=== PATIENT | male | born 1960 | race African-American/Black ===

== ENCOUNTER 2018-12-14 17:59 | Inpatient (IN) ==
[2018-12-14] MEDS ORDERED: ALBUTEROL/IPRATROPIUM 3 ML NEB RESP TX STA (18:31)
[2018-12-14] MEDS ORDERED: ONDANSETRON 4 MG/2 ML VIAL IV STA (18:31)
[2018-12-14] MEDS ORDERED: FUROSEMIDE 100 MG/10 ML VIAL IV STA (18:31)
[2018-12-14] MEDS ORDERED: DILTIAZEM 50 MG/10 ML VIAL IV STA (18:31)
[2018-12-14] MEDS ORDERED: dilTIAZem Drip 125 MG/125 ML PREMIX IV SCH (19:00)
[2018-12-14 19:04] LABS: Basophils % 0.5 % (0.0-0.8); Eosinophils # 0.1 10*3/uL (0.0-0.87); Eosinophils % 0.7 % (0.00-10.9); Hematocrit 26.8 VOL% (42.0-52.0); Hemoglobin 9.1 GM/DL (14.0-18.0); Immature Granulocytes % 0.5 %; Immature Granulocytes Absolute 0.04 #; Lymphocytes % 22.6 % (21.2-54.2); Mean Corpuscular Volume 113.1 FL (87-102); Mean Platelet Volume 9.7 FL (9.6-12.0); Monocytes % 8.9 % (1.7-12.7); Neutrophils % 66.8 % (38.7-73.9); Platelet Count 268 T/CUMM (130-400); Red Blood Count 2.37 MC/CUMM (3.8-5.5); Red Cell Distribution Width 14.3 % (9.3-17.3); White Blood Count 8.7 T/CUMM (4-12)
[2018-12-14 19:23] LABS: Albumin 2.7 G/DL (3.4-5.0); Bilirubin,Total 0.5 MG/DL (0.2-1.0); Calcium 8.6 MG/DL (8.5-10.1); Osmolality,Calculated 286.1 MOS/KG (273-304)
[2018-12-14 19:47] LABS: INR 1.1; PT Patient Result 11.6 SECS (9.6-12.2)
[2018-12-14] MEDS ORDERED: MAGNESIUM SULF RIDER 2 GM in PREMIX 1 EACH IV STA (20:08)
[2018-12-14] MEDS ORDERED: POTASSIUM CHLORIDE 20 MEQ TABLET PO STA (20:08)
[2018-12-14] MEDS ORDERED: ONDANSETRON 4 MG/2 ML VIAL IV PRN (20:20)
[2018-12-14] MEDS ORDERED: LORazepam 2 MG/1 ML VIAL IV PRN (20:25)
[2018-12-14] MEDS ORDERED: MAGNESIUM SULF RIDER 2 GM in PREMIX 1 EACH IV ONE (20:29)
[2018-12-14 20:31] LABS: Apearance,Urine CLEAR (Clear); Bilirubin,Urine Negative (Negative); Blood, Urine Negative (Negative); Glucose,Urine (UA) Negative (Negative); Hyaline Casts,Urine 1 /LPF (0-3); Ketones,Urine Negative (Negative); Mucus,Urine Occasional /LPF (Occasional); Nitrite,Urine Negative (Negative); Protein,Urine 30 MG/DL; RBC,Urine 2 /HPF (0-4); Urine Color Yellow (Yellow); Urine Urobilinogen < 2.0 EU/DL (0.2-1.0); WBC,Urine 6 /HPF (0-6)
[2018-12-14] MEDS ORDERED: METOPROLOL TARTRATE 50 MG TABLET PO SCH (21:00)
[2018-12-14] MEDS ORDERED: hydrALAZINE 25 MG TABLET PO SCH (21:00)
[2018-12-14 21:11] LABS: Troponin I 0.069 NG/ML (0.00-0.045)
[2018-12-15 04:03] LABS: Basophils % 0.4 % (0.0-0.8); Eosinophils # 0.1 10*3/uL (0.0-0.87); Eosinophils % 1.1 % (0.00-10.9); Hematocrit 24.9 VOL% (42.0-52.0); Hemoglobin 8.5 GM/DL (14.0-18.0); Immature Granulocytes % 0.5 %; Immature Granulocytes Absolute 0.04 #; Lymphocytes # 1.7 10*3/uL (1.4-4.0); Lymphocytes % 23.1 % (21.2-54.2); Mean Corpuscular HGB Conc 34.1 GM/DL (32-36); Mean Corpuscular Volume 113.2 FL (87-102); Mean Platelet Volume 9.9 FL (9.6-12.0); Monocytes % 11.6 % (1.7-12.7); NRBC # 0.02 10*3/uL; Neutrophils % 63.3 % (38.7-73.9); Platelet Count 259 T/CUMM (130-400); White Blood Count 7.4 T/CUMM (4-12)
[2018-12-15 04:26] LABS: Albumin 2.4 G/DL (3.4-5.0); Bilirubin,Total 0.6 MG/DL (0.2-1.0); Calcium 8.3 MG/DL (8.5-10.1); Osmolality,Calculated 286.1 MOS/KG (273-304); Risk Ratio 2.56; VLDL CHOLESTEROL 14.4 MG/DL
[2018-12-15 04:27] LABS: Troponin I 0.074 NG/ML (0.00-0.045)
[2018-12-15 04:31] LABS: Hypochromasia 1+; Ovalocytes 1+; Platelet Estimate Normal
[2018-12-15] MEDS ORDERED: FUROSEMIDE 40 MG/4 ML VIAL IV SCH ×2 (08:00→16:00)
[2018-12-15] MEDS ORDERED: metOLazone 5 MG TABLET PO SCH (09:00)
[2018-12-15] MEDS: FOLIC ACID 1 MG TABLET PO SCH (09:29)
[2018-12-15] MEDS: MULTIVITAMIN (INTRINSIC) CAPSULE PO SCH (09:29)
[2018-12-15] MEDS: ASPIRIN CHEW 81 MG TABLET PO SCH (09:29)
[2018-12-15] MEDS: ISOSORBIDE MONONITRATE 30 MG TABLET PO SCH (09:29)
[2018-12-15] MEDS: THIAMINE 100 MG TABLET PO SCH (09:29)
[2018-12-15 09:30] LABS: % Iron Saturation 33.7 % (18-50); Ferritin 288.8 ng/ml (26-388)
[2018-12-15] MEDS: hydrALAZINE 25 MG TABLET PO SCH ×2 (09:30→21:40)
[2018-12-15] MEDS: METOPROLOL TARTRATE 50 MG TABLET PO SCH ×2 (09:30→21:40)
[2018-12-15] MEDS: PANTOPRAZOLE 40 MG TABLET PO SCH (10:14)
[2018-12-15] MEDS: cefTRIAXone 1,000 MG in SYRINGE 1 EACH IV SCH (14:47)
[2018-12-15] MEDS: FUROSEMIDE 40 MG/4 ML VIAL IV SCH (16:26)
[2018-12-15 18:24] LABS: Protein/Creatinine Ratio,Urine 0.5 RATIO
[2018-12-15] MEDS: TAMSULOSIN 0.4 MG CAPSULE PO SCH (21:40)
[2018-12-16 04:50] LABS: Basophils % 0.3 % (0.0-0.8); Eosinophils # 0.1 10*3/uL (0.0-0.87); Eosinophils % 1.4 % (0.00-10.9); Hemoglobin 8.3 GM/DL (14.0-18.0); Immature Granulocytes % 0.3 %; Immature Granulocytes Absolute 0.02 #; Lymphocytes # 1.3 10*3/uL (1.4-4.0); Lymphocytes % 20.3 % (21.2-54.2); Mean Corpuscular HGB Conc 33.2 GM/DL (32-36); Mean Corpuscular Volume 115.7 FL (87-102); Mean Platelet Volume 10.6 FL (9.6-12.0); Monocytes % 11.1 % (1.7-12.7); Neutrophils % 66.6 % (38.7-73.9); Platelet Count 210 T/CUMM (130-400); Red Blood Count 2.16 MC/CUMM (3.8-5.5); Red Cell Distribution Width 14.5 % (9.3-17.3); White Blood Count 6.4 T/CUMM (4-12)
[2018-12-16 05:18] LABS: Calcium 8.5 MG/DL (8.5-10.1)
[2018-12-16 05:28] LABS: Anisocytosis 1+; Hypochromasia 1+; Platelet Estimate Adequate
[2018-12-16] MEDS: ACETAMINOPHEN 325 MG TABLET PO PRN ×2 (06:05→21:19)
[2018-12-16 09:07] LABS: % Iron Saturation 17.9 % (18-50); Ferritin 275.4 ng/ml (26-388)
[2018-12-16] MEDS: ISOSORBIDE MONONITRATE 30 MG TABLET PO SCH (09:46)
[2018-12-16] MEDS: ASPIRIN CHEW 81 MG TABLET PO SCH (09:46)
[2018-12-16] MEDS: FOLIC ACID 1 MG TABLET PO SCH (09:46)
[2018-12-16] MEDS: METOPROLOL TARTRATE 50 MG TABLET PO SCH ×2 (09:46→20:55)
[2018-12-16] MEDS: PANTOPRAZOLE 40 MG TABLET PO SCH (09:47)
[2018-12-16] MEDS: THIAMINE 100 MG TABLET PO SCH (09:47)
[2018-12-16] MEDS: MULTIVITAMIN (INTRINSIC) CAPSULE PO SCH (09:47)
[2018-12-16] MEDS: FUROSEMIDE 40 MG TABLET PO SCH (09:47)
[2018-12-16] MEDS: FUROSEMIDE 40 MG/4 ML VIAL IV SCH (09:48)
[2018-12-16] MEDS: hydrALAZINE 25 MG TABLET PO SCH ×2 (09:48→20:55)
[2018-12-16] MEDS ORDERED: SODIUM CHLORIDE 0.9% 1,000 ML IV PRN (14:02)
[2018-12-16 15:01] LABS: Ferritin 283.5 ng/ml (26-388)
[2018-12-16] MEDS: cefTRIAXone 1,000 MG in SYRINGE 1 EACH IV SCH (18:20)
[2018-12-16] MEDS: TAMSULOSIN 0.4 MG CAPSULE PO SCH (20:55)
[2018-12-17] MEDS ORDERED: SODIUM CHLORIDE 0.9% 1,000 ML IV PRN (00:39)
[2018-12-17 06:50] LABS: Basophils % 0.4 % (0.0-0.8); Eosinophils # 0.1 10*3/uL (0.0-0.87); Eosinophils % 1.7 % (0.00-10.9); Hemoglobin 9.3 GM/DL (14.0-18.0); Immature Granulocytes % 0.4 %; Immature Granulocytes Absolute 0.03 #; Lymphocytes # 1.8 10*3/uL (1.4-4.0); Lymphocytes % 26.3 % (21.2-54.2); Mean Corpuscular HGB Conc 33.2 GM/DL (32-36); Mean Corpuscular Volume 108.9 FL (87-102); Monocytes % 11.3 % (1.7-12.7); Neutrophils % 59.9 % (38.7-73.9); Platelet Count 248 T/CUMM (130-400); Red Blood Count 2.57 MC/CUMM (3.8-5.5); Red Cell Distribution Width 18.9 % (9.3-17.3)
[2018-12-17 07:11] LABS: Calcium 8.4 MG/DL (8.5-10.1); Osmolality,Calculated 283.5 MOS/KG (273-304)
[2018-12-17] MEDS: FOLIC ACID 1 MG TABLET PO SCH (08:42)
[2018-12-17] MEDS: PANTOPRAZOLE 40 MG TABLET PO SCH (08:42)
[2018-12-17] MEDS: ISOSORBIDE MONONITRATE 30 MG TABLET PO SCH (08:42)
[2018-12-17] MEDS: ASPIRIN CHEW 81 MG TABLET PO SCH (08:42)
[2018-12-17] MEDS: METOPROLOL TARTRATE 50 MG TABLET PO SCH (08:43)
[2018-12-17] MEDS: THIAMINE 100 MG TABLET PO SCH (08:43)
[2018-12-17] MEDS: hydrALAZINE 25 MG TABLET PO SCH (08:43)
[2018-12-17] MEDS: FUROSEMIDE 40 MG TABLET PO SCH (08:43)
[2018-12-17] MEDS: MULTIVITAMIN (INTRINSIC) CAPSULE PO SCH (08:46)
[2018-12-17 12:43] VITALS: BP 121/80
[2018-12-17] MEDS ORDERED: SODIUM BICARBONATE 650 MG TABLET PO SCH (13:00)
== END 2018-12-17 14:59 | disposition home or self-care (01) | DRG 291 ==
LOC: N.ED 17:59 → N.TELES 20:18
PROVIDERS: ADMIT Internal Medicine; ATTEND Internal Medicine

== ENCOUNTER 2020-03-18 22:55 | Inpatient (IN) ==
[2020-03-18] MEDS ORDERED: ONDANSETRON 4 MG/2 ML VIAL IV STA (23:34)
[2020-03-18] MEDS ORDERED: hydrALAZINE 20 MG/1 ML VIAL IV STA (23:34)
[2020-03-18] MEDS ORDERED: MORPHINE 4 MG/1 ML VIAL IV STA (23:35)
[2020-03-18] MEDS ORDERED: MORPHINE 4 MG/1 ML VIAL ONE (23:36)
[2020-03-18 23:37] LABS: Basophils % 0.3 % (0.0-0.8); Eosinophils % 0.3 % (0.00-10.9); Hematocrit 25.7 VOL% (42.0-52.0); Hemoglobin 8.9 GM/DL (14.0-18.0); Immature Granulocytes % 0.3 %; Immature Granulocytes Absolute 0.02 #; Lymphocytes # 1.2 10*3/uL (1.4-4.0); Lymphocytes % 20.8 % (21.2-54.2); Mean Corpuscular HGB Conc 34.6 GM/DL (32-36); Mean Corpuscular Volume 117.4 FL (87-102); Mean Platelet Volume 9.2 FL (9.6-12.0); Monocytes % 5.9 % (1.7-12.7); Neutrophils % 72.4 % (38.7-73.9); Platelet Count 229 T/CUMM (130-400); Red Blood Count 2.19 MC/CUMM (3.8-5.5); Red Cell Distribution Width 12.5 % (9.3-17.3); White Blood Count 5.8 T/CUMM (4-12)
[2020-03-18] MEDS: DEXTROSE 5% NACL 0.45% 1,000 ML IV SCH (23:45)
[2020-03-18] MEDS ORDERED: ONDANSETRON 4 MG/2 ML VIAL IV PRN (23:46)
[2020-03-18] MEDS ORDERED: MAGNESIUM HYDROXIDE SUSP 30 ML UDCUP PO PRN (23:46)
[2020-03-18 23:49] LABS: PT Patient Result 11.1 SECS (9.8-11.9); Partial Thromboplastin Time 31.3 SECS (23.9-33.8)
[2020-03-18 23:51] LABS: Calcium 8.6 MG/DL (8.5-10.1); Osmolality,Calculated 285.4 MOS/KG (273-304); Potassium 3.4 MMOL/L (3.5-5.1)
[2020-03-19] MEDS ORDERED: METOPROLOL TARTRATE 5 MG/5 ML VIAL IV STA (00:01)
[2020-03-19 00:21] LABS: Alanine Aminotransferase < 9 U/L (16-61); Albumin 2.7 G/DL (3.4-5.0); Alkaline Phosphatase 72 U/L (45-117); Aspartate Amino Transferase 17 U/L (0-37); Bilirubin,Total < 0.39 MG/DL (0.2-1.0); Blood Urea Nitrogen 32 MG/DL (7-18); Calcium 8.5 MG/DL (8.5-10.1); Carbon Dioxide 16 MMOL/L (21-32); Estimated Glom Filtration Rate 40 ML/MIN; Glucose 102 MG/DL (74-106); Osmolality,Calculated 285.4 MOS/KG (273-304); Potassium 3.4 MMOL/L (3.5-5.1); Sodium 140 MMOL/L (136-145); Total Protein 8.1 G/DL (6.4-8.3)
[2020-03-19] MEDS ORDERED: METOPROLOL TARTRATE 50 MG TABLET PO STA (01:19)
[2020-03-19] MEDS ORDERED: METOPROLOL TARTRATE 25 MG TABLET PO STA (01:27)
[2020-03-19] MEDS: hydrALAZINE 25 MG TABLET PO SCH ×3 (01:40→21:17)
[2020-03-19] MEDS ORDERED: hydrALAZINE 20 MG/1 ML VIAL IV STA (03:02)
[2020-03-19] MEDS: MORPHINE 4 MG/1 ML VIAL IV PRN ×3 (03:11→22:28)
[2020-03-19] MEDS ORDERED: SODIUM BICARBONATE 50 MEQ/50 ML VIAL IV ONE ×2 (05:06→08:30)
[2020-03-19] MEDS ORDERED: INFLUENZA VIRUS VACCINE 0.5 ML SYRINGE IM ONE (07:15)
[2020-03-19] MEDS ORDERED: MIDAZOLAM 2 MG/2 ML VIAL ONE (08:08)
[2020-03-19] MEDS ORDERED: fentaNYL 100 MCG/2 ML VIAL ONE (08:08)
[2020-03-19] MEDS ORDERED: DEXMEDETOMIDINE 200 MCG/2 ML VIAL ONE (08:08)
[2020-03-19] MEDS ORDERED: SODIUM CHLORIDE 0.9% 1,000 ML IV PRN ×2 (08:15→08:22)
[2020-03-19] MEDS ORDERED: BUPIVACAINE SPINAL 0.75% 2 ML AMP SPINAL ONE (08:29)
[2020-03-19] MEDS ORDERED: LIDOCAINE 1% 5 ML VIAL ONE (08:29)
[2020-03-19] MEDS ORDERED: DEXAMETHASONE 4 MG/1 ML VIAL ONE (08:29)
[2020-03-19] MEDS ORDERED: EPINEPHrine 1 MG/ML VIAL ONE (08:29)
[2020-03-19] MEDS ORDERED: BUPIVACAINE MPF 0.25% 30 ML VIAL ONE (08:29)
[2020-03-19] MEDS ORDERED: KETAMINE 500 MG/10 ML VIAL ONE (09:25)
[2020-03-19] MEDS ORDERED: MAGNESIUM HYDROXIDE SUSP 30 ML UDCUP PO PRN (10:49)
[2020-03-19] MEDS ORDERED: LACTULOSE 20 GM/30 ML UDCUP PO PRN (10:49)
[2020-03-19] MEDS ORDERED: PROMETHAZINE 25 MG/1 ML VIAL IM PRN (10:49)
[2020-03-19] MEDS ORDERED: BISACODYL 10 MG SUPP RECTAL PRN (10:49)
[2020-03-19] MEDS ORDERED: TEMAZEPAM 7.5 MG CAPSULE PO PRN (10:49)
[2020-03-19] MEDS ORDERED: MORPHINE 10 MG/1 ML VIAL IV PRN (11:26)
[2020-03-19] MEDS ORDERED: ONDANSETRON 4 MG/2 ML VIAL IV PRN (11:26)
[2020-03-19] MEDS ORDERED: TRANEXAMIC ACID 1,000 MG/10 ML VIAL ONE (11:36)
[2020-03-19] MEDS ORDERED: PHENYLEPHRINE 1 MG/10 ML SYRINGE IV ONE (11:36)
[2020-03-19] MEDS: POTASSIUM CHLORIDE 20 MEQ TABLET PO PRN ×3 (14:39→23:05)
[2020-03-19] MEDS ORDERED: THIAMINE 100 MG TABLET PO SCH (15:30)
[2020-03-19 16:15] LABS: ABG Base Excess -11.1 MMOL/L (-2.5-2.5); ABG HCO3 15.5 MMOL/L (20-26); ABG Oxygen Saturation 99.2 % (95-100); ABG PCO2 25.1 MM HG (35-48); ABG PH 7.343 (7.35-7.45); ABG TCO2 12.9 MMOL/L (23-27)
[2020-03-19] MEDS: ceFAZolin 2,000 MG in PREMIX 1 EACH IV SCH (16:17)
[2020-03-19] MEDS: DEXTROSE 5% NACL 0.45% 1,000 ML IV SCH (16:29)
[2020-03-19] MEDS ORDERED: SODIUM BICARB INJ 150 MEQ in STERILE WATER INJ 850 ML IV SCH (16:30)
[2020-03-19] MEDS: DOCUSATE SODIUM 100 MG CAPSULE PO SCH (21:18)
[2020-03-19] MEDS: hydrALAZINE 20 MG/1 ML VIAL IV PRN ×2 (22:29→23:41)
[2020-03-20] MEDS: ceFAZolin 2,000 MG in PREMIX 1 EACH IV SCH (00:31)
[2020-03-20] MEDS: MORPHINE 4 MG/1 ML VIAL IV PRN (02:54)
[2020-03-20] MEDS: hydrALAZINE 20 MG/1 ML VIAL IV PRN ×3 (02:54→16:50)
[2020-03-20] MEDS: diphenhydrAMINE CAP 25 MG CAPSULE PO PRN ×2 (04:52→20:44)
[2020-03-20] MEDS: FONDAPARINUX 2.5 MG/0.5 ML SYRINGE SUBCUT SCH (05:28)
[2020-03-20 06:07] LABS: Calcium 8.3 MG/DL (8.5-10.1); Osmolality,Calculated 279.8 MOS/KG (273-304); Potassium 4.7 MMOL/L (3.5-5.1)
[2020-03-20 06:11] LABS: Alanine Aminotransferase < 9 U/L (16-61); Albumin 2.3 G/DL (3.4-5.0); Alkaline Phosphatase 58 U/L (45-117); Aspartate Amino Transferase 35 U/L (0-37); Bilirubin,Total < 0.39 MG/DL (0.2-1.0); Blood Urea Nitrogen 32 MG/DL (7-18); Calcium 8.3 MG/DL (8.5-10.1); Carbon Dioxide 15 MMOL/L (21-32); Estimated Glom Filtration Rate 32 ML/MIN; Glucose 106 MG/DL (74-106); Osmolality,Calculated 279.8 MOS/KG (273-304); Potassium 4.7 MMOL/L (3.5-5.1); Sodium 137 MMOL/L (136-145); Total Protein 7.6 G/DL (6.4-8.3)
[2020-03-20 07:00] LABS: Folate 2.4 NG/ML (5.4-24.0)
[2020-03-20 07:20] LABS: Basophils % 0.1 % (0.0-0.8); Hematocrit 23.2 VOL% (42.0-52.0); Immature Granulocytes % 1.5 %; Immature Granulocytes Absolute 0.34 #; Lymphocytes # 1.2 10*3/uL (1.4-4.0); Lymphocytes % 5.4 % (21.2-54.2); Mean Corpuscular HGB Conc 34.5 GM/DL (32-36); Mean Corpuscular Volume 115.4 FL (87-102); Mean Platelet Volume 10.1 FL (9.6-12.0); Monocytes % 3.2 % (1.7-12.7); Neutrophils % 89.8 % (38.7-73.9); Platelet Count 206 T/CUMM (130-400); Red Blood Count 2.01 MC/CUMM (3.8-5.5); Red Cell Distribution Width 12.5 % (9.3-17.3); White Blood Count 22.8 T/CUMM (4-12)
[2020-03-20 07:42] LABS: Hypochromasia 1+; Lymphocytes 3 % (20-55); Microcytosis 1+; Platelet Estimate Adequate; Segmented Neutrophils 94 % (50-85); Total Cells Counted 100
[2020-03-20] MEDS ORDERED: LORazepam 2 MG/1 ML VIAL IM ONE (08:33)
[2020-03-20] MEDS: DOCUSATE SODIUM 100 MG CAPSULE PO SCH ×2 (09:24→22:15)
[2020-03-20] MEDS: hydrALAZINE 25 MG TABLET PO SCH ×2 (09:24→22:12)
[2020-03-20 09:39] LABS: ABG Base Excess -10.3 MMOL/L (-2.5-2.5); ABG HCO3 16.2 MMOL/L (20-26); ABG Oxygen Saturation 99.7 % (95-100); ABG PCO2 26.6 MM HG (35-48); ABG PH 7.343 (7.35-7.45); ABG TCO2 13.6 MMOL/L (23-27)
[2020-03-20] MEDS ORDERED: SODIUM BICARBONATE 50 MEQ/50 ML VIAL IV ONE (09:51)
[2020-03-20] MEDS ORDERED: FOLIC ACID INJ 1 MG in SYRINGE 1 EACH IV SCH (10:30)
[2020-03-20] MEDS: LORazepam 2 MG/1 ML VIAL IV PRN (10:44)
[2020-03-20] MEDS: THIAMINE 200 MG/2 ML VIAL IV SCH (10:45)
[2020-03-20] MEDS: FOLIC ACID INJ 1 MG in SYRINGE 1 EACH IV SCH (12:52)
[2020-03-20] MEDS: METOPROLOL TARTRATE 50 MG TABLET PO SCH ×2 (15:17→22:15)
[2020-03-20] MEDS: ASPIRIN CHEW 81 MG TABLET PO SCH (15:17)
[2020-03-20] MEDS: ISOSORBIDE MONONITRATE 30 MG TABLET PO SCH (15:17)
[2020-03-20] MEDS: FOLIC ACID 1 MG TABLET PO SCH (15:17)
[2020-03-20] MEDS: DEXTROSE 5% NACL 0.45% 1,000 ML IV SCH ×3 (16:23→20:05)
[2020-03-21] MEDS: DEXTROSE 5% NACL 0.45% 1,000 ML IV SCH ×4 (03:46→22:51)
[2020-03-21] MEDS: MORPHINE 4 MG/1 ML VIAL IV PRN (04:52)
[2020-03-21] MEDS: FONDAPARINUX 2.5 MG/0.5 ML SYRINGE SUBCUT SCH (07:11)
[2020-03-21] MEDS: ISOSORBIDE MONONITRATE 30 MG TABLET PO SCH (08:25)
[2020-03-21] MEDS: METOPROLOL TARTRATE 50 MG TABLET PO SCH ×2 (08:25→21:18)
[2020-03-21] MEDS: FOLIC ACID 1 MG TABLET PO SCH (08:25)
[2020-03-21] MEDS: hydrALAZINE 25 MG TABLET PO SCH (08:26)
[2020-03-21] MEDS: ASPIRIN CHEW 81 MG TABLET PO SCH (08:29)
[2020-03-21] MEDS: THIAMINE 200 MG/2 ML VIAL IV SCH (08:31)
[2020-03-21] MEDS: LORazepam 2 MG/1 ML VIAL IV PRN (08:33)
[2020-03-21 09:58] LABS: Basophils % 0.1 % (0.0-0.8); Eosinophils % 0.1 % (0.00-10.9); Hematocrit 21.1 VOL% (42.0-52.0); Hemoglobin 7.1 GM/DL (14.0-18.0); Immature Granulocytes % 0.7 %; Immature Granulocytes Absolute 0.05 #; Lymphocytes # 0.7 10*3/uL (1.4-4.0); Lymphocytes % 9.6 % (21.2-54.2); Mean Corpuscular HGB Conc 33.6 GM/DL (32-36); Mean Corpuscular Volume 115.9 FL (87-102); Mean Platelet Volume 9.5 FL (9.6-12.0); Monocytes % 1.8 % (1.7-12.7); Neutrophils % 87.7 % (38.7-73.9); Platelet Count 158 T/CUMM (130-400); Red Blood Count 1.82 MC/CUMM (3.8-5.5); Red Cell Distribution Width 12.5 % (9.3-17.3); White Blood Count 7.1 T/CUMM (4-12)
[2020-03-21] MEDS: ISOSORBIDE MONONITRATE 60 MG TABLET PO SCH (10:01)
[2020-03-21] MEDS: DOCUSATE SODIUM 100 MG CAPSULE PO SCH ×2 (10:01→21:17)
[2020-03-21 10:15] LABS: Hypochromasia 2+; Microcytosis 1+; Ovalocytes Slight; Platelet Estimate Adequate
[2020-03-21] MEDS: FOLIC ACID INJ 1 MG in SYRINGE 1 EACH IV SCH (13:10)
[2020-03-22] MEDS: FONDAPARINUX 2.5 MG/0.5 ML SYRINGE SUBCUT SCH (05:15)
[2020-03-22 05:27] LABS: Basophils % 0.2 % (0.0-0.8); Eosinophils # 0.1 10*3/uL (0.0-0.87); Eosinophils % 1.4 % (0.00-10.9); Hematocrit 20.9 VOL% (42.0-52.0); Immature Granulocytes % 0.9 %; Immature Granulocytes Absolute 0.09 #; Lymphocytes # 1.5 10*3/uL (1.4-4.0); Lymphocytes % 14.8 % (21.2-54.2); Mean Corpuscular HGB Conc 33.5 GM/DL (32-36); Mean Corpuscular Volume 114.8 FL (87-102); Mean Platelet Volume 9.7 FL (9.6-12.0); Monocytes % 4.7 % (1.7-12.7); Platelet Count 187 T/CUMM (130-400); Red Blood Count 1.82 MC/CUMM (3.8-5.5); Red Cell Distribution Width 12.4 % (9.3-17.3); White Blood Count 9.8 T/CUMM (4-12)
[2020-03-22 05:42] LABS: Calcium 8.2 MG/DL (8.5-10.1); Potassium 3.9 MMOL/L (3.5-5.1)
[2020-03-22 08:04] LABS: Anisocytosis 1+; Hypochromasia 2+; Microcytosis 1+
[2020-03-22 08:05] LABS: Platelet Estimate Adequate
[2020-03-22] MEDS ORDERED: SODIUM BICARB INJ 150 MEQ in STERILE WATER INJ 850 ML IV SCH (09:30)
[2020-03-22] MEDS: ASPIRIN CHEW 81 MG TABLET PO SCH (09:35)
[2020-03-22] MEDS: ISOSORBIDE MONONITRATE 60 MG TABLET PO SCH (09:35)
[2020-03-22] MEDS: DOCUSATE SODIUM 100 MG CAPSULE PO SCH ×2 (09:35→21:49)
[2020-03-22] MEDS: FOLIC ACID 1 MG TABLET PO SCH (09:35)
[2020-03-22] MEDS: THIAMINE 200 MG/2 ML VIAL IV SCH (09:35)
[2020-03-22] MEDS: METOPROLOL TARTRATE 50 MG TABLET PO SCH ×2 (09:35→21:49)
[2020-03-22] MEDS: hydrALAZINE 20 MG/1 ML VIAL IV PRN ×2 (09:36→12:38)
[2020-03-22] MEDS: PANTOPRAZOLE 40 MG TABLET PO SCH (09:40)
[2020-03-22] MEDS: DEXTROSE 5% NACL 0.45% 1,000 ML IV SCH (11:49)
[2020-03-22 18:20] LABS: Bacteria,Urine Occasional /HPF (Few); Bilirubin,Urine Negative (Negative); Blood, Urine Negative (Negative); Glucose,Urine (UA) Negative (Negative); Ketones,Urine Negative (Negative); Mucus,Urine Occasional /LPF (Occasional); Nitrite,Urine Negative (Negative); Protein,Urine 30 MG/DL; RBC,Urine 3 /HPF (0-4); Urine Appearance CLEAR (Clear); Urine Color Yellow (Yellow); Urine Specific Gravity 1.011 (1.001-1.035); Urine Urobilinogen < 2.0 EU/DL (0.2-1.0); WBC,Urine 9 /HPF (0-6)
[2020-03-22] MEDS: ACETAMINOPHEN 325 MG TABLET PO PRN (21:49)
[2020-03-23] MEDS: FONDAPARINUX 2.5 MG/0.5 ML SYRINGE SUBCUT SCH (05:41)
[2020-03-23 06:49] LABS: Basophils % 0.2 % (0.0-0.8); Eosinophils % 0.3 % (0.00-10.9); Hematocrit 18.3 VOL% (42.0-52.0); Immature Granulocytes % 0.6 %; Immature Granulocytes Absolute 0.04 #; Lymphocytes # 0.7 10*3/uL (1.4-4.0); Lymphocytes % 11.7 % (21.2-54.2); Mean Corpuscular HGB Conc 34.4 GM/DL (32-36); Mean Corpuscular Volume 114.4 FL (87-102); Monocytes % 11.7 % (1.7-12.7); Neutrophils % 75.5 % (38.7-73.9); Platelet Count 144 T/CUMM (130-400); Red Cell Distribution Width 12.6 % (9.3-17.3); White Blood Count 6.3 T/CUMM (4-12)
[2020-03-23 06:59] LABS: Hemoglobin 6.3 GM/DL (14.0-18.0)
[2020-03-23 07:13] LABS: Calcium 7.7 MG/DL (8.5-10.1); Osmolality,Calculated 279.8 MOS/KG (273-304)
[2020-03-23 07:18] LABS: Lymphocytes 3 % (20-55); Ovalocytes Few; Platelet Estimate Adequate; Polychromasia Slight; Segmented Neutrophils 83 % (50-85); Stomatocytes Few; Total Cells Counted 100
[2020-03-23 07:19] LABS: Hypochromasia 3+; Macrocytosis 2+
[2020-03-23] MEDS ORDERED: SODIUM CHLORIDE 0.9% 1,000 ML IV PRN (08:46)
[2020-03-23] MEDS: ASPIRIN CHEW 81 MG TABLET PO SCH (09:52)
[2020-03-23] MEDS: FOLIC ACID 1 MG TABLET PO SCH (09:52)
[2020-03-23] MEDS: DOCUSATE SODIUM 100 MG CAPSULE PO SCH ×2 (09:52→20:16)
[2020-03-23] MEDS: METOPROLOL TARTRATE 50 MG TABLET PO SCH ×2 (09:53→20:16)
[2020-03-23] MEDS: ISOSORBIDE MONONITRATE 60 MG TABLET PO SCH (09:53)
[2020-03-23] MEDS: THIAMINE 200 MG/2 ML VIAL IV SCH (09:53)
[2020-03-23] MEDS: PANTOPRAZOLE 40 MG VIAL IV SCH ×2 (09:58→20:16)
[2020-03-23] MEDS: PANTOPRAZOLE 40 MG TABLET PO SCH (10:07)
[2020-03-23] MEDS ORDERED: ACETAMINOPHEN 500 MG TABLET PO ONE (16:16)
[2020-03-23 16:34] LABS: Basophils % 0.3 % (0.0-0.8); Eosinophils % 0.6 % (0.00-10.9); Hematocrit 22.2 VOL% (42.0-52.0); Hemoglobin 7.4 GM/DL (14.0-18.0); Immature Granulocytes % 0.4 %; Immature Granulocytes Absolute 0.03 #; Lymphocytes % 14.7 % (21.2-54.2); Mean Corpuscular HGB Conc 33.3 GM/DL (32-36); Mean Corpuscular Volume 108.3 FL (87-102); Mean Platelet Volume 9.7 FL (9.6-12.0); Monocytes % 11.3 % (1.7-12.7); Neutrophils % 72.7 % (38.7-73.9); Platelet Count 151 T/CUMM (130-400); Red Blood Count 2.05 MC/CUMM (3.8-5.5); Red Cell Distribution Width 18.2 % (9.3-17.3); White Blood Count 6.7 T/CUMM (4-12)
[2020-03-23 17:02] LABS: Lymphocytes 9 % (20-55); Platelet Estimate Adequate; Segmented Neutrophils 81 % (50-85); Total Cells Counted 100
[2020-03-23 17:03] LABS: Hypochromasia 2+
[2020-03-24] MEDS: ACETAMINOPHEN 325 MG TABLET PO PRN ×2 (06:10→17:02)
[2020-03-24 09:30] LABS: Hematocrit 26.6 VOL% (42.0-52.0); Hemoglobin 8.9 GM/DL (14.0-18.0)
[2020-03-24] MEDS: METOPROLOL TARTRATE 50 MG TABLET PO SCH ×2 (09:44→20:28)
[2020-03-24] MEDS: ISOSORBIDE MONONITRATE 60 MG TABLET PO SCH (09:44)
[2020-03-24] MEDS: FOLIC ACID 1 MG TABLET PO SCH (09:44)
[2020-03-24] MEDS: THIAMINE 200 MG/2 ML VIAL IV SCH (09:44)
[2020-03-24] MEDS: ASPIRIN CHEW 81 MG TABLET PO SCH (09:44)
[2020-03-24] MEDS: DOCUSATE SODIUM 100 MG CAPSULE PO SCH ×2 (09:44→20:28)
[2020-03-24] MEDS: PANTOPRAZOLE 40 MG VIAL IV SCH ×2 (09:45→20:28)
[2020-03-24] MEDS: VANCOMYCIN 50 MG/ML 60 ML/BOTTLE PO SCH ×3 (10:35→20:28)
[2020-03-25] MEDS: VANCOMYCIN 50 MG/ML 60 ML/BOTTLE PO SCH ×4 (02:33→21:35)
[2020-03-25] MEDS: ACETAMINOPHEN 325 MG TABLET PO PRN (05:39)
[2020-03-25 06:18] LABS: Basophils % 0.4 % (0.0-0.8); Eosinophils % 0.4 % (0.00-10.9); Hemoglobin 8.4 GM/DL (14.0-18.0); Immature Granulocytes % 1.1 %; Immature Granulocytes Absolute 0.06 #; Lymphocytes # 1.3 10*3/uL (1.4-4.0); Lymphocytes % 23.3 % (21.2-54.2); Mean Corpuscular HGB Conc 33.6 GM/DL (32-36); Mean Corpuscular Volume 106.4 FL (87-102); Mean Platelet Volume 9.9 FL (9.6-12.0); Neutrophils % 65.8 % (38.7-73.9); Platelet Count 152 T/CUMM (130-400); Red Blood Count 2.35 MC/CUMM (3.8-5.5); Red Cell Distribution Width 19.7 % (9.3-17.3); White Blood Count 5.6 T/CUMM (4-12)
[2020-03-25 06:53] LABS: Calcium 7.5 MG/DL (8.5-10.1); Osmolality,Calculated 279.7 MOS/KG (273-304)
[2020-03-25 07:03] LABS: Lymphocytes 13 % (20-55); Nucleated Red Blood Cells 1 (0-5); Segmented Neutrophils 79 % (50-85); Total Cells Counted 100
[2020-03-25 07:04] LABS: Atypical Lymphocytes Few; Hypochromasia 1+; Microcytosis 1+; Platelet Estimate Adequate
[2020-03-25] MEDS ORDERED: TUBERCULIN SKIN TEST 0.1 ML SYRINGE INTRADERM ONE (09:04)
[2020-03-25] MEDS: PANTOPRAZOLE 40 MG VIAL IV SCH ×2 (09:23→21:35)
[2020-03-25] MEDS: THIAMINE 200 MG/2 ML VIAL IV SCH (09:24)
[2020-03-25] MEDS: DOCUSATE SODIUM 100 MG CAPSULE PO SCH ×2 (09:25→21:35)
[2020-03-25] MEDS: METOPROLOL TARTRATE 50 MG TABLET PO SCH ×2 (09:25→21:35)
[2020-03-25] MEDS: FOLIC ACID 1 MG TABLET PO SCH (09:25)
[2020-03-25] MEDS: ASPIRIN CHEW 81 MG TABLET PO SCH (09:25)
[2020-03-25] MEDS: ISOSORBIDE MONONITRATE 60 MG TABLET PO SCH (09:25)
[2020-03-25] MEDS ORDERED: MELATONIN 3 MG TABLET PO PRN (14:08)
[2020-03-25] MEDS: cefTRIAXone 1,000 MG in SYRINGE 1 EACH IV SCH (15:42)
[2020-03-25] MEDS: CHOLECALCIFEROL 1,000 UNIT TABLET PO SCH (15:47)
[2020-03-25] MEDS: AZITHROMYCIN 250 MG TABLET PO SCH (15:47)
[2020-03-25] MEDS: FAMOTIDINE 20 MG TABLET PO SCH ×2 (15:47→21:35)
[2020-03-25] MEDS: ASCORBIC ACID 500 MG TABLET PO SCH ×2 (15:47→23:48)
[2020-03-25] MEDS: ZINC GLUCONATE 50 MG TABLET PO SCH (16:01)
[2020-03-25] MEDS: CETIRIZINE 10 MG TABLET PO SCH (16:01)
[2020-03-26] MEDS: VANCOMYCIN 50 MG/ML 60 ML/BOTTLE PO SCH ×4 (03:35→20:45)
[2020-03-26 05:38] LABS: Basophils % 0.7 % (0.0-0.8); Eosinophils # 0.1 10*3/uL (0.0-0.87); Eosinophils % 1.5 % (0.00-10.9); Hematocrit 25.3 VOL% (42.0-52.0); Hemoglobin 8.5 GM/DL (14.0-18.0); Immature Granulocytes % 1.1 %; Immature Granulocytes Absolute 0.06 #; Lymphocytes # 1.9 10*3/uL (1.4-4.0); Lymphocytes % 33.8 % (21.2-54.2); Mean Corpuscular HGB Conc 33.6 GM/DL (32-36); Mean Corpuscular Volume 105.9 FL (87-102); Mean Platelet Volume 10.1 FL (9.6-12.0); Monocytes % 6.9 % (1.7-12.7); Platelet Count 157 T/CUMM (130-400); Red Blood Count 2.39 MC/CUMM (3.8-5.5); Red Cell Distribution Width 19.1 % (9.3-17.3); White Blood Count 5.5 T/CUMM (4-12)
[2020-03-26 05:55] LABS: Calcium 7.3 MG/DL (8.5-10.1); Osmolality,Calculated 280.7 MOS/KG (273-304); Potassium 3.6 MMOL/L (3.5-5.1)
[2020-03-26 06:00] LABS: Alanine Aminotransferase < 6 U/L (16-61); Albumin 1.6 G/DL (3.4-5.0); Alkaline Phosphatase 58 U/L (45-117); Aspartate Amino Transferase 30 U/L (0-37); Blood Urea Nitrogen 33 MG/DL (7-18); Calcium 7.2 MG/DL (8.5-10.1); Carbon Dioxide 22 MMOL/L (21-32); Estimated Glom Filtration Rate 39 ML/MIN; Glucose 75 MG/DL (74-106); Osmolality,Calculated 278.8 MOS/KG (273-304); Potassium 3.6 MMOL/L (3.5-5.1); Sodium 137 MMOL/L (136-145)
[2020-03-26 06:06] LABS: Band Neutrophils 1 % (0-10); Eosinophils 1 % (0-10); Hypochromasia 2+; Lymphocytes 21 % (20-55); Microcytosis 1+; Ovalocytes Slight; Platelet Estimate Adequate; Segmented Neutrophils 71 % (50-85); Total Cells Counted 100
[2020-03-26] MEDS: DOCUSATE SODIUM 100 MG CAPSULE PO SCH ×2 (08:31→20:45)
[2020-03-26] MEDS: PANTOPRAZOLE 40 MG VIAL IV SCH ×2 (08:42→20:44)
[2020-03-26] MEDS: CHOLECALCIFEROL 1,000 UNIT TABLET PO SCH (08:42)
[2020-03-26] MEDS: ASPIRIN CHEW 81 MG TABLET PO SCH (08:43)
[2020-03-26] MEDS: AZITHROMYCIN 250 MG TABLET PO SCH (08:43)
[2020-03-26] MEDS: FAMOTIDINE 20 MG TABLET PO SCH ×2 (08:44→20:45)
[2020-03-26] MEDS: ISOSORBIDE MONONITRATE 60 MG TABLET PO SCH (08:44)
[2020-03-26] MEDS: METOPROLOL TARTRATE 50 MG TABLET PO SCH ×2 (08:44→20:45)
[2020-03-26] MEDS: FOLIC ACID 1 MG TABLET PO SCH (08:44)
[2020-03-26] MEDS: ASCORBIC ACID 500 MG TABLET PO SCH ×2 (08:44→20:45)
[2020-03-26] MEDS: DEXAMETHASONE 4 MG TABLET PO SCH (08:44)
[2020-03-26] MEDS: CETIRIZINE 10 MG TABLET PO SCH (08:44)
[2020-03-26] MEDS: THIAMINE 200 MG/2 ML VIAL IV SCH (10:29)
[2020-03-26] MEDS ORDERED: ACETAMINOPHEN 325 MG TABLET PO PRN (10:30)
[2020-03-26] MEDS ORDERED: BAMLANIVIMAB 700 MG in SODIUM CHLORIDE 0.9% 250 ML IV ONE (10:30)
[2020-03-26] MEDS ORDERED: SODIUM CHLORIDE 0.9% 1,000 ML IV SCH (10:30)
[2020-03-26] MEDS ORDERED: SODIUM CHLORIDE 0.9% 200 ML IV SCH (10:30)
[2020-03-26] MEDS ORDERED: methylPREDNISolone SOD SUC 125 MG/2 ML VIAL IV PRN (10:30)
[2020-03-26] MEDS ORDERED: diphenhydrAMINE 50 MG/1 ML VIAL IV PRN ×2 (10:30)
[2020-03-26] MEDS ORDERED: MECLIZINE 25 MG TABLET PO PRN (10:30)
[2020-03-26] MEDS: ZINC GLUCONATE 50 MG TABLET PO SCH (10:30)
[2020-03-26] MEDS ORDERED: ONDANSETRON 4 MG/2 ML VIAL IV PRN (10:30)
[2020-03-26] MEDS: cefTRIAXone 1,000 MG in SYRINGE 1 EACH IV SCH (15:19)
[2020-03-26] MEDS: MORPHINE 4 MG/1 ML VIAL IV PRN (20:43)
[2020-03-27] MEDS: MORPHINE 4 MG/1 ML VIAL IV PRN (01:02)
[2020-03-27] MEDS: VANCOMYCIN 50 MG/ML 60 ML/BOTTLE PO SCH ×3 (03:22→14:53)
[2020-03-27 05:02] LABS: Basophils % 0.1 % (0.0-0.8); Hematocrit 27.9 VOL% (42.0-52.0); Hemoglobin 9.5 GM/DL (14.0-18.0); Immature Granulocytes % 0.9 %; Immature Granulocytes Absolute 0.08 #; Lymphocytes # 1.9 10*3/uL (1.4-4.0); Lymphocytes % 20.5 % (21.2-54.2); Mean Corpuscular HGB Conc 34.1 GM/DL (32-36); Mean Corpuscular Volume 105.7 FL (87-102); Mean Platelet Volume 10.4 FL (9.6-12.0); Monocytes % 2.9 % (1.7-12.7); NRBC # 0.03 10*3/uL; Neutrophils % 75.6 % (38.7-73.9); Platelet Count 152 T/CUMM (130-400); Red Blood Count 2.64 MC/CUMM (3.8-5.5); Red Cell Distribution Width 18.6 % (9.3-17.3); White Blood Count 9.1 T/CUMM (4-12)
[2020-03-27 05:25] LABS: Hypochromasia 1+; Lymphocytes 18 % (20-55); Microcytosis 1+; Ovalocytes Slight; Platelet Estimate Adequate; Segmented Neutrophils 79 % (50-85); Total Cells Counted 100
[2020-03-27 05:29] LABS: Calcium 7.3 MG/DL (8.5-10.1); Osmolality,Calculated 283.5 MOS/KG (273-304); Potassium 4.1 MMOL/L (3.5-5.1)
[2020-03-27] MEDS: FOLIC ACID 1 MG TABLET PO SCH (10:31)
[2020-03-27] MEDS: DEXAMETHASONE 4 MG TABLET PO SCH (10:31)
[2020-03-27] MEDS: FAMOTIDINE 20 MG TABLET PO SCH (10:31)
[2020-03-27] MEDS: PANTOPRAZOLE 40 MG VIAL IV SCH (10:31)
[2020-03-27] MEDS: ASPIRIN CHEW 81 MG TABLET PO SCH (10:31)
[2020-03-27] MEDS: DOCUSATE SODIUM 100 MG CAPSULE PO SCH (10:31)
[2020-03-27] MEDS: METOPROLOL TARTRATE 50 MG TABLET PO SCH (10:31)
[2020-03-27] MEDS: ISOSORBIDE MONONITRATE 60 MG TABLET PO SCH (10:31)
[2020-03-27] MEDS: THIAMINE 200 MG/2 ML VIAL IV SCH (10:33)
[2020-03-27] MEDS: AZITHROMYCIN 250 MG TABLET PO SCH (10:33)
[2020-03-27] MEDS: ASCORBIC ACID 500 MG TABLET PO SCH (10:33)
[2020-03-27] MEDS: CHOLECALCIFEROL 1,000 UNIT TABLET PO SCH (10:33)
[2020-03-27] MEDS: ZINC GLUCONATE 50 MG TABLET PO SCH (10:33)
[2020-03-27] MEDS: CETIRIZINE 10 MG TABLET PO SCH (10:33)
[2020-03-27 11:13] VITALS: BP 179/88
[2020-03-27] MEDS: cefTRIAXone 1,000 MG in SYRINGE 1 EACH IV SCH (14:52)
== END 2020-03-27 16:00 | DRG 521 ==
LOC: EDUNIT# → EDBD → N.ED 22:55 → N.EDINP 23:46 → SUATTDRO 23:46 → N.3E 03-19 03:31 → N.TELES 03-20 09:06 → N.2E 03-25 11:32
PROVIDERS: ADMIT Orthopaedic Surgery; ATTEND Internal Medicine